=== PATIENT | female | born 1980 | race Caucasian/White ===

== ENCOUNTER → 2018-08-05 | Outpatient (CLI) | payer OTHER, SELFPAY ==
[2018-08-05 16:02] LABS: ALB/GLOB Ratio 1.1 RATIO (0.9-2.4); AST(SGOT) 13 U/L (15-37); Alanine Aminotransfer ALT/SGPT 17 U/L (13-56); Albumin, Serum 4.1 g/dL (3.2-5.0); Alkaline Phosphatase 70 U/L (45-117); Anion Gap 7 (5-15); BUN 10 mg/dL (7-18); BUN/Creat Ratio 14.3 RATIO (10-20); CRP < 2.90 mg/L (0.0-3.0); Calcium,Total 9.8 mg/dL (8.5-10.1); Chloride 103 mmol/L (98-107); EST Glomerular Filtration Rate 98 mL/min (>60); Est Glom Filt Rate - Afr Amer 119 mL/min (>60); Globulin 3.8 g/dL (2.2-4.2); Glucose 83 mg/dL (74-106); Protein, Total 7.9 g/dL (6.4-8.2); Rheumatoid Factor < 10.0 IU/mL (<15); Sodium Level 140 mmol/L (136-145)
[2018-08-05 16:06] LABS: Erythrocyte Sedimentation Rate 15 mm/hr (0-20)
[2018-08-05 16:21] LABS: Absolute Neutrophil Count 3.7 X10^3/uL (2.0-7.7); Basophil# 0.03 X10^3/uL; Basophil% 0.5 % (0-1); Eosinophil# 0.05 X10^3/uL; Eosinophils% 0.9 % (0-5); Hematocrit 35.4 % (37-47); Hemoglobin 10.7 g/dl (12.0-15.0); Lymphocyte % 30.6 % (19-41); Mean Corp Hgb Conc 30.2 g/gl (32-36); Mean Corpuscular Hgb 22.5 pg (27.0-32.0); Mean Corpuscular Volume 74.5 fL (81-99); Mean Platelet Vol. 10.4 fl (6.2-12.0); Monocyte% 5.1 % (0-10); Neutrophil % 62.9 % (47-70); Platelet Count 404 K/mm3 (150-450); RBC Distribution Width CV 13.9 % (11.6-14.6); RBC Distribution Width SD 37.9 fl (35.1-43.9); Red Blood Count 4.75 M/mm3 (4.2-5.4); White Blood Count 5.9 K/mm3 (4.4-11.0)
[2018-08-05 16:22] LABS: Differential Indicated SCAN CRITERIA MET; POSITIVE COUNT NO; POSITIVE DIFFERENTIAL NO; POSITIVE MORPHOLOGY YES
[2018-08-05 16:25] LABS: Anisocytosis 1+; Hypochromasia 1+; Microcytosis 3+; Platelet Estimate ADEQUATE (ADEQ)
[2018-08-06 09:08] LABS: Iron 17 ug/dL (50-170)
[2018-08-07 15:05] LABS: ANTINUCLEAR ANTIBODIES DIRECT Negative (Negative)
== END | disposition home or self-care (01) ==
LOC: MFPLAB 14:21
PROVIDERS: Family Provider Family Medicine; PCP Family Medicine; Referring Provider Family Medicine; Visit Provider Family Medicine
DX: R68.2 Dry mouth, unspecified (principal)
CPT/HCPCS: 36415; 80053; 83540; 85025; 85652; 86038; 86140; 86431

== ENCOUNTER → 2020-11-22 10:35 | Outpatient (CLI) | payer OTHER, SELFPAY ==
--- NOTE | 2020-11-22 10:42 | BI_ITS ---
MAMMOGRAPHY - BILATERAL SCREENING REASON FOR EXAM: Female, 40 years old. Routine annual screening examination. PERTINENT HISTORY: Non-contributory. TECHNIQUE: Digital bilateral breast hannah (3D mammographic acquisition) in the CC and MLO projections. 2-D mediolateral oblique (MLO) and craniocaudad (CC) views of both breasts were obtained. CAD: Full Field Digital Mammography with Computer Added Detection was performed. COMPARISON: No comparison mammograms available at this time. If any prior films become available, an addendum to this report can be generated. FINDINGS: Breast Composition: The breasts are heterogeneously dense, which may obscure small masses. There are no dominant masses or suspicious calcifications. No other significant abnormalities are identified. BI/SCRN MAMM (CAD)W/HANNAH BILAT IMPRESSION: Negative screening mammogram. Yearly followup mammogram recommended. (A) ASSESSMENT CATEGORY: BIRADS Category 1: Negative. A letter regarding these results will be sent to the patient by the facility within 30 days. Approximately 10% of breast cancers are not detected by mammography. A normal mammogram should not delay biopsy of a clinically suspicious abnormality. [id number] Electronically Signed: Arcadio Urbano MD at 15:23 EDT , Service support ,
== END ==
PROVIDERS: PCP Family Medicine; Referring Provider Family Medicine; Visit Provider Family Medicine
DX: Z12.31 Encounter for screening mammogram for malignant neoplasm of breast (principal)
CPT/HCPCS: 77063; 77067

== ENCOUNTER → 2021-08-30 | Outpatient (CLI) | payer SELFPAY ==
[2021-09-01 18:40] LABS: HPV APTIMA, High Risk Negative (Negative)
== END | disposition home or self-care (01) ==
LOC: LABSPEC 09:24
PROVIDERS: PCP Family Medicine; Visit Provider Student in an Organized Health Care Education/Training Program
DX: Z12.4 Encounter for screening for malignant neoplasm of cervix (principal)
CPT/HCPCS: 87624; 88175; G0145

== ENCOUNTER 2022-02-16 09:03 | Day surgery (SDC) | payer SELFPAY ==
--- NOTE | 2022-02-12 17:33 | HP.PCM_ITS ---
[facility] - General General Date of Admission: 02/16/22 Date of Service: 02/16/22 Chief Complaint: Chronic venous insufficiency, varicose veins with inflammation, leg pain, history of superficial thrombophlebitis, postphlebitic syndrome with inflammation, blanchard phlebectatica, hyperpigmentation ? right lower extremity HPI Narrative KAYLIN CHEN is a 42 F who presents with a longstanding history of pain, aching, and discomfort in her right lower extremity. She has had symptoms for many years, which have become progressively worse over time, and with each of her 3 pregnancies. Her symptoms are more pronounced at the end of each day. S he is active, and sleeps on a flat mattress at night. She has a history of superficial thrombophlebitis in the right lower extremity approximately 1 year ago. She denies a significant swelling in her right lower extremity. A venous duplex examination has been performed, which revealed incompetence of the right great saphenous vein, and large varicosities branching off of the right great saphenous vein. The implications of this diagnosis have been discussed with the patient in detail. The options of management have been fully explained. Conservative treatment measures have been implemented, which have included leg elevation, avoidance of idle standing and sitting, graduated compression stockings, weight control measures, active lifestyle, [id number] analgesics, etc. Despite these measures, the patient has remained symptomatic, with symptoms which have adversely affected daily activities, quality of life, and job functions. The patient is a Ab0. [facility] Medical History (Updated 02/12/22 @ 17:[address] Rogelio Shoemaker MD) Chronic venous insufficiency Blanchard phlebectatica paraplantaris Leg pain, right Non-smoker Postphlebitic syndrome with inflammation Varicose veins of right lower extremity with inflammation Wears glasses Home Medications NK 02/09/22 [History Last Taken Unknown] Allergy/AdvReac Type Severity Reaction Status Date / Time No Known Allergies Allergy Verified 02/09/22 15:00 Surgical History History of wisdom tooth extraction Social History Smoking Status: Never smoker Physical Exam Const alert, oriented x3, no apparent distress and well nourished General Appearance: cooperative and well developed Orientation / Consciousness: awake, oriented to person, oriented to place and oriented to time HEENT normocephalic and head/scalp atraumatic Head and Scalp: normal to inspection, normocephalic and atraumatic External Ear: external ears normal Eyes PERRL and EOMs intact bilaterally General Eye: normal appearance of both eyes Neck General: trachea midline Resp normal respiratory effort, normal air movement, no retractions, no use of accessory muscles and clear to auscultation bilaterally Effort and Inspection: able to speak in complete sentences Cardio regular rate and regular rhythm GI soft to palpation and non-tender Extremity normal capillary refill, no clubbing, cyanosis or edema and no calf tenderness Extremity Narrative: No significant swelling is noted in the lower extremities. Blanchard phlebectatica and hyperpigmentation is noted in the vicinity of the right medial malleolus. Multiple large varicosities are noted on the medial aspect of the patient's right lower extremity. General Extremity: Negative for clubbing or cyanosis Neuro oriented x3, CN's II-XII intact bilaterally, no focal motor deficits and no sensory deficits noted Psych thought process normal, cooperative and affect normal Appearance: grossly normal and appropriate Attitude: calm Activity / Motor Behavior: appropriate eye contact Speech: normal speech Mood & Affect: euthymic mood Thought Process: normal thought process Thought Content: normal thought content Attention / Concentration: attention grossly intact Assessment & Plan Assessment/Plan (1) Chronic venous insufficiency: (2) Varicose veins of right lower extremity with inflammation: (3) Leg pain, right: (4) Postphlebitic syndrome with inflammation: (5) Blanchard phlebectatica paraplantaris: PLAN: This is a 42-year-old female with a longstanding history of chronic venous insufficiency, varicose veins with inflammation, leg pain, and postphlebitic syndrome with inflammation involving her right lower extremity. Despite conservative treatment measures, the patient remains symptomatic, with symptoms which adversely affect daily activities, quality of life, and job functions. The options of management have been fully explained. The indications and risks of endovenous laser ablation of the right great saphenous vein have been discussed with the patient in detail. The patient is to be admitted for the purpose of elective endovenous laser ablation of the right great saphenous vein. The indications and risks of the procedure have been discussed with the patient in detail. Expectations of the procedure have been explained. The patient's questions have been answered. The appropriate preprocedure consent process has been undertaken. The patient has indicated her desire to proceed.
[2022-02-16 10:01] VITALS: BP 117/86; PULSE 85; RESP 18; TEMP 36.5; O2SAT 100; BMI 21.3
[2022-02-16] MEDS: Enoxaparin 30 MG/0.3 ML Syringe SC (10:08)
[2022-02-16] MEDS: Lactated Ringers 1,000 ML 150 ML IV (10:08)
--- NOTE | 2022-02-16 10:14 | SUR.PREOP ---
patient refused urine due to having vasectomy. This RN spoke with Dr. Leung and her stated that it was okay to not do urine . Explained to patient. she voiced understanding.
[2022-02-16] MEDS: Cefazolin 2 GM in 0.9% Normal Saline 100 ML IV (11:03)
[2022-02-16 12:15] VITALS: BP 115/62; BP 117/86; PULSE 94; RESP 18; TEMP 37; O2SAT 99
--- NOTE | 2022-02-16 12:27 | DCINST_ITS ---
Discharge Instructions Diet Discharge Diet: No restrictions Activity Discharge Activity: May Not Drive and May Shower (48 hours) May shower in (days): 2 Weight Bearing Status: Weight bearing as tolerated Keep extremity elevated above heart level: Right Leg Dressing / Incision Call your doctor if your incision/area has: Sudden Increased Bleeding Call your doctor if you observe: Shortness of breath, Chest pain and Uncontrolled pain Change Dressing in: 2 days (Re-wrap leg daily after initial shower. Wrap from base of toes to upper thigh.) Remove Dressing in: 2 days Follow Up Care Please Follow Up With: Rogelio Shoemaker MD When: 10-14 days Test Results: Test results from this visit will be discussed in further detail at your follow- up appointment, if applicable. Discharge Plan Admission Attending Provider: Rogelio Shoemaker Primary Care Provider: Philipp Gardiner Discharge Orders/Prescriptions Prescriptions: No Action NK Referrals / Follow Up: Philipp Gardiner MD [Primary Care Provider] - Disposition Disposition (needs filled in before D/C Order can be placed): Home, Self Care
[2022-02-16 12:30] VITALS: BP 111/59; BP 117/86; PULSE 92; RESP 16; O2SAT 100
[2022-02-16 12:42] VITALS: BP 107/67; BP 117/86; PULSE 92; RESP 16; TEMP 37.1; O2SAT 99
[2022-02-16 13:15] VITALS: BP 110/62; BP 117/86; PULSE 88; RESP 18; O2SAT 98
--- NOTE | 2022-02-16 18:04 | PCM.OPRPT ---
Problems Associated Problem List Diagnoses (1) Chronic venous insufficiency: (2) Varicose veins of right lower extremity with inflammation: (3) Leg pain, right: (4) Postphlebitic syndrome with inflammation: (5) Aburto phlebectatica paraplantaris: Report of Operation Date of Procedure: 02/16/22 Pre-Operative Diagnosis: Chronic venous insufficiency, varicose veins with inflammation, leg pain, post-phlebitic syndrome with inflammation, aburto phlebectatica - right lower extremity Post-Operative Diagnosis: Chronic venous insufficiency, varicose veins with inflammation, leg pain, post-phlebitic syndrome with inflammation, aburto phlebectatica - right lower extremity Surgery/Procedure Performed:: Endovenous laser ablation of the right great saphenous vein Description of Surgical Findings:: As above Surgeon: Rogelio Shoemaker Type of Anesthesia: General and Tumescent Anesthesiologist: Chuy Mortensen Special Medications: Lovenox 30 mg subcutaneously Specimen's removed: None Drains: None Estimated Blood Loss (mL): Minimal Description of Procedure: This is a 42-year-old female with a longstanding history of chronic pain, aching, and discomfort in her right lower extremity. In addition, she has developed manifestations of chronic venous disease, including aburto phlebectatica near the right medial malleolus. A recent venous duplex examination revealed valvular incompetence involving the right great saphenous vein. The implications of this diagnosis were discussed with the patient in detail. The options of management were fully explained. Conservative treatment measures were implemented, including leg elevation, avoidance of idle standing and sitting, graduated compression stockings, weight control measures, active lifestyle, [id number]-[id number] analgesics, etc. Despite these measures, the patient remained symptomatic, with symptoms which adversely affected daily activities, quality of life, and job functions. The indications and risks of endovenous laser ablation of the right great saphenous vein were discussed with the patient in detail. The appropriate pre-procedure consent process was undertaken. The patient underwent ultrasound marking of the right great saphenous vein preoperatively. She was then brought to the operating suite, placed supine upon the operating table, where general anesthesia was administered by the anesthesia staff. The patient's right lower extremity and right groin were prepped and draped in the appropriate sterile manner. The patient was placed in reverse Trendelenburg position. Ultrasonography was used to image the right great saphenous vein in the distal calf. The micropuncture technique was used to access the right great saphenous vein percutaneously in the distal calf. In this manner, a 0.018 inch guidewire was advanced intraluminally into the right great saphenous vein, and was visualized by ultrasonography. A micropuncture sheath was advanced over the guidewire. The 0.018 inch guidewire was exchanged for a 0.035 inch guidewire, which was then advanced intraluminally to a level just distal to the right sapheno-femoral junction, as confirmed by ultrasound imaging. A long 4 Malagasy sheath was advanced over the guidewire, and its tip was positioned approximately 2-1/2 to 3 cm distal to the right sapheno-femoral junction. Perivenous tumescent anesthesia was injected from the 4 Malagasy sheath exit site up to the right sapheno-femoral junction. This was performed segmentally using ultrasound imaging. The AngioDynamics laser fiber was then introduced into the 4 Malagasy sheath and coupled appropriately. Ultrasonography was used to confirm that the tip of the laser fiber was positioned within the right great saphenous vein approximately 2-1/2 to 3 cm distal to the right sapheno-femoral junction. The patient was then placed in Trendelenburg position and the laser fiber was activated. The AngioDynamics laser was slowly withdrawn at a constant rate throughout the length of the right great saphenous vein, thereby ablating the great saphenous vein segmentally. The energy applied was approximately 60 to 80 J/cm. Following the laser ablation, the laser fiber and sheath were removed, and manual pressure was briefly applied to the percutaneous access site to achieve hemostasis. After assuring satisfactory hemostasis, the access site was approximated using Cavilon and Steri-Strips. A dry sterile gauze dressing was applied over the access site, and the leg was wrapped from the base of the toes to upper thigh with Kerlix, followed by Akhil wrap. The blood loss for the procedure was minimal. The sponge, needle, and instrument counts at the end of the procedure were correct. The patient tolerated the procedure well and was transported from the operating room to the post-anesthesia care unit in stable condition. The amount of tumescent anesthesia utilized, number of joules applied, and treatment times were recorded separately. Grafts/Implants Used: None Complications None Admit VTE Documentation VTE Present on Admission: No VTE Mechan Device Prophylaxis: SCD's (Left) VTE Pharm Prophylaxis ordered?: Yes
== END 2022-02-16 14:03 | disposition home or self-care (01) ==
LOC: SDC 09:07 → AC 09:07
PROVIDERS: PCP Family Medicine; Referring Provider Surgery; Visit Provider Surgery
PROC: (CPT 36478; principal; 2022-02-16 10:15)
DX: I87.2 Venous insufficiency (chronic) (peripheral) (principal); I83.91 Asymptomatic varicose veins of right lower extremity; M79.604 Pain in right leg; I87.021 Postthrombotic syndrome with inflammation of right lower extremity
CPT/HCPCS: 36478; 01520; J7040; J7120; J2405

== ENCOUNTER → 2022-09-18 | Outpatient (CLI) | payer SELFPAY ==
--- NOTE | 2022-09-18 13:57 | BI_ITS ---
MAMMOGRAPHY - BILATERAL SCREENING REASON FOR EXAM: Female, 42 years old. Routine annual screening examination. PERTINENT HISTORY: Non-contributory. TECHNIQUE: Digital bilateral breast hannah (3D mammographic acquisition) in the CC and MLO projections. 2-D mediolateral oblique (MLO) and craniocaudad (CC) views of both breasts were obtained. CAD: Full Field Digital Mammography with Computer Added Detection was performed. COMPARISON: Comparison is made with prior study done November 22, 2020. FINDINGS: Breast Composition: The breasts are heterogeneously dense, which may obscure small masses. There are no dominant masses or suspicious calcifications. No other significant abnormalities are identified. There has been no significant change since the prior study. BI/SCRN MAMM (CAD)W/HANNAH BILAT IMPRESSION: Stable bilateral screening mammogram. Yearly follow-up mammogram recommended. (A) ASSESSMENT CATEGORY: BIRADS Category 1: Negative. A letter regarding these results will be sent to the patient by the facility within 30 days. Approximately 10% of breast cancers are not detected by mammography. A normal mammogram should not delay biopsy of a clinically suspicious abnormality. [id number] Electronically Signed: Arcadio Urbano MD at 15:21 EDT ,
== END | disposition home or self-care (01) ==
PROVIDERS: PCP Family Medicine; Referring Provider Nurse Practitioner Women's Health; Visit Provider Nurse Practitioner Women's Health
DX: Z12.31 Encounter for screening mammogram for malignant neoplasm of breast (principal)
CPT/HCPCS: 77063; 77067

== ENCOUNTER → 2023-10-01 | Outpatient (CLI) | payer OTHER, SELFPAY ==
--- NOTE | 2023-10-01 10:29 | BI_ITS ---
MAMMOGRAPHY - BILATERAL SCREENING REASON FOR EXAM: Female, 43 years old. Routine annual screening examination. PERTINENT HISTORY: Non-contributory. TECHNIQUE: Digital bilateral breast hannah (3D mammographic acquisition) in the CC and MLO projections. 2-D mediolateral oblique (MLO) and craniocaudad (CC) views of both breasts were obtained. CAD: Full Field Digital Mammography with Computer Added Detection was performed. COMPARISON: Comparison is made with prior study dated September 18, 2022 and November 22, 2020. FINDINGS: Breast Composition: The breasts are heterogeneously dense, which may obscure small masses. There are no dominant masses or suspicious calcifications. No other significant abnormalities are identified. There has been no significant change since the prior study. BI/SCRN MAMM (CAD)W/HANNAH BILAT IMPRESSION: Stable bilateral screening mammogram. Yearly follow-up mammogram recommended. (A) ASSESSMENT CATEGORY: BIRADS Category 1: Negative. A letter regarding these results will be sent to the patient by the facility within 30 days. Approximately 10% of breast cancers are not detected by mammography. A normal mammogram should not delay biopsy of a clinically suspicious abnormality. [id number] Electronically Signed: Arcadio Urbano MD at 11:21 EDT ,
== END | disposition home or self-care (01) ==
LOC: OPBI 10:29
PROVIDERS: PCP Family Medicine; Referring Provider Nurse Practitioner Women's Health; Visit Provider Nurse Practitioner Women's Health
DX: Z12.31 Encounter for screening mammogram for malignant neoplasm of breast (principal)
CPT/HCPCS: 77063; 77067

== ENCOUNTER → 2024-10-08 | Outpatient (CLI) | payer OTHER, SELFPAY ==
--- NOTE | 2024-10-08 10:00 | BI_ITS ---
EXAM: SCRN MAMM (CAD)W/HANNAH BILAT DATE: 10/08/2024 CLINICAL HISTORY: F, Age 44 y/o , SCREEN FOR BREAST CANCER No family history. TECHNIQUE: SCRN MAMM (CAD)W/HANNAH BILAT COMPARISON: Prior exam(s) dated October 01, 2023.. FINDINGS: TISSUE DENSITY: The breasts are heterogeneously dense, which may obscure small masses. Bilateral Breast Mammographic Findings: No significant masses, calcifications or other abnormalities are identified. No suspicious masses, areas of developing architectural distortion, or suspicious calcifications. There has been no significant interval change. BI/SCRN MAMM (CAD)W/HANNAH BILAT IMPRESSION: Stable examination. OVERALL FINAL ASSESSMENT BI-RADS 1: NEGATIVE. RECOMMENDATION: Routine annual follow-up in 1 Year A letter with findings and recommendations will be mailed to the patient. Reading Location: [id number]
--- OUTSIDE RECORDS SUMMARY | 2024-10-08 11:43 | XMS RPT_ITS | CCD ---
Author Organization [facility] Informat ion Partnership [facility] Care Team Providers Care E Learning Manager Name Role Phone Dr. Philipp Gardiner Primary Care Provider Dr. Philipp Gardiner Referring Provider Domenica GARAGE DOOR TECHNICIAN, FREDOC Danni Attending Provider Domenica GARAGE DOOR TECHNICIAN, Danni Attending Unavailable Matt Gardiner Primary Care Unavailable Matt Gardiner Referring Unavailable Domenica GARAGE DOOR TECHNICIAN, Danni Attending Unavailable Domenica GARAGE DOOR TECHNICIANDanni Referring Unavailable Matt Gardiner Primary Care Unavailable Dr. Matt Gardiner MD Primary Care Provider Dr. Matt Gardiner MD Referring Provider 1( [phone] Domenica HESTER-C, Danni Attending Provider Problems Problem Classification Problem Date Documented Date Episodic/Chronic Other circulatory disease (3 sources) Ankle flare; Translations: [Other specified symptoms and signs involving the circulatory and respiratory systems] 02-12-2022 Episodic Other circulatory disease (1 source) Other specified symptoms and signs involving the circulatory and respiratory systems; Translations: [Other symptoms involving cardiovascular system] Episodic Other connective tissue disease (3 sources) Pain in right lower limb; Translations: [Pain in right leg] 02-12-2022 Episodic Other connective tissue disease (1 source) Pain in right leg; Translations: [Pain in limb] Episodic Other diseases of veins and lymphatics (3 sources) Postthrombotic syndrome; Translations: [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] 02-12-2022 Chronic Other diseases of veins and lymphatics (1 source) 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; Translations: [Postphlebetic syndrome with inflammation] Chronic Other diseases of veins and lymphatics (3 sources) Peripheral venous insufficiency; Translations: [Venous insufficiency (chronic) (peripheral)] 02-12-2022 Episodic Other diseases of veins and lymphatics (1 source) Venous insufficiency (chronic) (peripheral); Translations: [Venous (peripheral) insufficiency, unspecified] Episodic Other female genital disorders (1 source) Cyst of vulva; Translations: [Vulvar cyst] 10-01-2023 Episodic Comment on above: reassured, warm soak s Other screening for suspected conditions (not mental disorders or infectious disease) (1 source) Encounter for screening mammogram for malignant neoplasm of breast; Translations: [Encounter for screening mammogram for malignant neoplasm of breast] Onset: 10-06-2024 Episodic Varicose veins of lower extremity (4 sources) Varicose vein of leg with phlebitis; Translations: [Varicose veins of right lower extremity with inflammation] Episodic Results Test Name Value Interpretation Reference Range Facil ity Cervical or vagninal specime n microscopic examination by cytology stain (reported ason 08-30-2021 Cytology report Cyto stain Doc (Cvx/Vag) Comment . [facility] Work Phone: Comment on above: The Pap smear is a s creening test designed to aid in thedetection of premalignant and malignant conditions of theuterine cervix. It is not a diagnostic procedure andshould not be used as the sole means of detecting cervicalcancer. Both false-positive and false-negative reports dooccur. Detection in cervical specim en of any of human papilloma virus (HPV) 16, 18, 31, 33,on 08-30-2021 HPV 16+18+31+33+35+39+4 5+51+52+56+58+59+66 +68 DNA Probe+sig amp Ql (Cvx) Negative Negative [facility] Work Phone: Comment on above: This nucleic acid am plification test detects fourteen high- risk HPV types (16,18,31,33,35,39,45,51,52,56,58,59,66,68)without differentiation.Performed at: [address] [place] [id number] Director: Ruthie Poole MD, Phone: [phone] at: = - [facility] [address] [place] [id number] Director: Ruthie Poole MD, Phone: [phone] Laboratory - Cytologyon 08-19 Forestry Crew Chief Cyto stain Nom (Cvx/Vag) [ID] Comment . [facility] Work Phone: Comment on above: Isadora Zhang, Hog Slaughterer (ASCP) Laboratory - Miscellaneous t estson 08-30-2021 Service comment (Unsp spec) [Interp] Comment . [facility] Work Phone: Comment on above: This liquid based Th inPrep(R) pap test was screened withthe use of an image guided system. Service comment (Unsp spec) [Interp] . . [facility] Work Phone: No Panel Informationon 08-30 Pathology report final diagnosis Narrative Comment . [facility] Work Phone: Comment on above: NEGATIVE FOR INTRAEP ITHELIAL LESION OR MALIGNANCY. Vital Signs Date Time Vital Sign Value Performing Clinician Faci lity 10-08-2024 09:17-0400 Body height 157.[address] Matt Gardiner MD Work Phone: [facility] 10-08-2024 09:13-0400 Body mass index (BMI) [Ratio] 22.5 kg/m2 Dr. Matt Gardiner MD Work Phone: [facility] 10-08-2024 09:13-0400 Body weight 55.[address] Matt Gardiner MD Work Phone: [facility] 10-08-2024 09:13-0400 Diastolic blood pressure 82 mm[Hg] Dr. Matt Gardiner MD Work Phone: [facility] 10-08-2024 09:13-0400 Systolic blood pressure 112 mm[Hg] Dr. Matt Gardiner MD Work Phone: [facility] 09-14-2022 14:22-0400 Body height 157.[address] Philipp Gardiner Work Phone: [facility] 09-14-2022 14:22-0400 Body mass index (BMI) [Ratio] 23.2 kg/m2 Dr. Philipp Gadriner Work Phone: [facility] 09-14-2022 14:22-0400 Body weight 57.[address] Philipp Gardiner Work Phone: [facility] 09-14-2022 14:22-0400 Diastolic blood pressure 74 mm[Hg] Dr. Philipp Gardiner Work Phone: [facility] 09-14-2022 14:22-0400 Systolic blood pressure 121 mm[Hg] Dr. Philipp Gardiner Work Phone: [facility] 02-16-2022 13:15-0500 Diastolic blood pressure 62 mm[Hg] [facility] Work Phone: 02-16-2022 13:15-0500 Heart rate 88 /min [facility] Work Phone: 02-16-2022 13:15-0500 Respiratory rate 18 /min [facility] Work Phone: 02-16-2022 13:15-0500 SaO2% (BldA) [Mass fraction] 98 % [facility] Work Phone: 02-16-2022 13:15-0500 Systolic blood pressure 110 mm[Hg] [facility] Work Phone: 02-16-2022 12:42-0500 Body temperature 98.7 [degF] [facility] Work Phone: 02-16-2022 10:01-0500 Body height 157.48 cm [facility] Work Phone: 02-16-2022 10:01-0500 Body mass index (BMI) [Ratio] 21.3 kg/m2 [facility] Work Phone: 02-16-2022 10:01-0500 Body weight 53 kg [facility] Work Phone: Encounters Encounter Date Encounter Type Care Provider Facility Start: 10-08-2024 End: 10-08-2024 ambulatory Danni Metzger GARAGE DOOR TECHNICIAN Facility:[facility] Start: 10-08-2024 End: 10-08-2024 Patient encounter procedure Danni Metzger GARAGE DOOR TECHNICIAN-C -[facility] Work Phone: Start: 10-08-2024 End: 10-08-2024 Patient encounter status Danni Metzger GARAGE DOOR TECHNICIAN-C [facility] Start: 09-18-2022 End: 09-18-[address] Philipp Gardiner Work Phone: [facility] Work Phone: Start: 09-18-2022 End: 09-18-[address] Philipp Gardiner Work Phone: [facility]-Outpatient Breast Imaging Work Phone: Start: 09-14-2022 End: 09-14-[address] Philipp Gardiner Work Phone: [facility] Work Phone: Start: 02-16-2022 End: 02-16-2022 Admission to same day surgery center [facility] Start: 02-16-2022 End: 02-16-2022 ambulatory [facility] Work Phone: Start: 08-30-2021 End: 08-30-2021 Patient encounter procedure [facility]-Laboratory, Specimen Procedures Date Procedure Procedure Detail Performing Clinician Start: 09-18-2022 Screening mammography Diamond Gardiner Work Phone: Start: 02-16-2022 Destructive procedur e of vein Plan of Treatment Date Care Activity Detail Author Start: 02-16-2022 Bedrest [facility] Work Phone: Start: 02-16-2022 Deep breathing and c oughing exercises [facility] Work Phone: Start: 02-16-2022 Measuring intake and output [facility] Work Phone: Start: 02-16-2022 Medication education [facility] Work Phone: Start: 02-16-2022 Patient discharge [facility] Work Phone: Start: 02-16-2022 Patient education [facility] Work Phone: Start: 02-16-2022 Procedure discontinued [facility] Work Phone: Start: 02-16-2022 Provision of activity privileges [facility] Work Phone: Start: 02-16-2022 Scheduling [facility] Work Phone: Start: 02-16-2022 Taking patient vital signs [facility] Work Phone: Start: 02-16-2022 Vital signs measurements [facility] Work Phone: Start: 02-16-2022 [facility] Work Phone: Start: 02-16-2022 Urine test [facility] Work Phone: Patient referral [facility] Work Phone: Urine test [facility] Work Phone: [facility] Work Phone: Payers Date Payer Category Payer Self-pay [id number] 2024 Private Health Insurance [id number] 2003 Unknown [id number] Unknown [id number] Unknown [id number] Social History Date Type Detail Facility [facility] Work Phone: Start: 1980 Sex Assigned At Female [facility] Start: 02-09-2022 End: 09-14-2022 Tobacco smoking status [facility] Unknown if ever smoked [facility] Start: 09-14-2022 [facility] Never smoked tobacco (finding) [facility] Goals Date Patient Goal Desired Activity /State Mental Status Date Assessment Result Facility 02-16-2022 Cognitive function Voice/Name [facility] Work Phone: Progress note 10-08-2024 Note Date & Type Note Facility 10-08-2024 Progress note [facility] Clinical Note 08-30-2021 Note Date & Type Note Facility 08-30-2021 Note [facility] Work Phone: Pap Smear Specimen Adequacy August 30, 2021 9:15am Comment . Satisfactory for evaluation. Endocervical and/or squamous metaplasticcells (endocervical component) are present. Comment on above: Satisfactory for fili luation. Endocervical and/or squamous metaplasticcells (endocervical component) are present. Evaluation note Note Date & Type Note Facility Evaluation note No assessment information availa ble [facility] Work Phone: Evaluation note Note Date & Type Note Facility Evaluation note Diagnosis Onset Date Aburto phlebectatica paraplantaris acute Leg pain, right acute Postphlebitic syndrome with inflammation acute Varicose veins of right lowe r extremity with inflammation acute Chronic venous insufficiency chronic [facility] Work Phone: Evaluation note Note Date & Type Note Facility Evaluation note Diagnosis Onset Date Routine gynecological examination noneactive [facility] Work Phone: Evaluation note Note Date & Type Note Facility Evaluation note Diagnosis Onset Date Resolution Routine gynecological examination acute October 08 9:09am [facility] Work Phone: Progress note Note Date & Type Note Facility Progress note Note Date/Time October 08, 2024 9:31am [facility] [address], [address] [place] [address] OFFICE VISIT Date of Service: 10/08/24 MR#: [id number] Acct: [id number] Name: KAYLIN CHEN Rep # : [id number] : 1980 Provider: BENITO Metzger Age/Sex: 44/F Location: [facility] [place] Status: Signed Intake Vital Signs 10/01/23 11:00 10/08/24 09:13 10/08/24 09:17 Height 5 ft 2 in 5 ft 2 in 5 ft 2 in Weight: 123 lb 1 oz BMI 22.5 BP 112/82 H Intake Visit Reasons: Annual (LABOR RELATIONS WORKER) Chief Complaint: Annual Platform Man Required: No Is patient in pain?: No Allergies No Known Allergies Allergy (Verified 10/08/24 09:24) Medications ?Medication ?Instructions ?Recorded ?Confirmed ?Type NK 02/09/22 10/08/24 History Is last menstrual period known: Yes Last Menstrual Period: 10/01/24 Post menopausal: No Patient : No : No PFSH Medical History 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 Leg pain, right Varicose veins of right lower extremity with inflammation Chronic venous insufficiency Wears glasses Non-smoker Surgical History History of wisdom tooth extraction Family History Father Cancer Tonsil cancer Hypertension Social History number of children: 3 current occupational status: employed current occupation: violin teacher Smoking Status: Never smoker alcohol intake: never substance use type: does not use seatbelt use: always do you feel safe at home: Yes additional social history: - Jared- interventional pain physician History 3 Elective abortions Hx Para 3 Spontaneous abortions Hx # Term Pregnancies Ectopic pregnancies Hx # Pregnancies Multiple births # of living children 3 Past Pregnancies Del. Date Name GA/Weeks Outcome Route Bth Weight Gen Labor Lgth Anesthesia Del Locatn Provider FOB Unknown Raymond Unknown Jamal Unknown Fercho HPI Annual (LABOR RELATIONS WORKER) Details: KAYLIN CHEN is a 44 year old who presents for annual exam. Denies concerns Last PAP: 2021 History of abnormal PAP:no Last mammogram: 09/2023 History of abnormal mammogram: no Colon cancer screening: Hank 2024 Other preventative health care screenings: Abdifatah Female Reproductive History Last Menstrual Period: 10/01/24 Cycle Length: 21-35 Questions: metrorrhagia: No, sexually active: Yes, dyspareunia: No and PCB: No ROS Const Constitutional: Denies fatigue, weight gain or weight loss Cardio Card: Denies chest pain Resp Resp: Denies cough or dyspnea on exertion GI GI: Denies abdominal pain, bloating, change in stool character, constipation or vomiting : Reports as per HPI; Denies difficulty voiding, pelvic pain, urinary frequency, urinary incontinence,urinary urgency, vaginal discharge or vaginal pruritus Exam Const General: cooperative, healthy appearing, no acute distress and well developed Orientation: alert, oriented to person and oriented to place HENPR Head: normal to inspection Neck Neck: normal visual inspection Thyroid: thyroid normal Lymphatic: no lymphadenopathy noted Chest Breast inspection: normal inspection of the breasts and normal inspection of theaxillae Breast palpation: normal palpation of the breasts, normal palpation of the axillae and no axillary lymphadenopathy Resp Effort & Inspection: normal respiratory effort GI Palpation: soft, no masses and nontender Rectal Exam: deferred External Female Exam: normal external appearance and normal appearance of the urethra Urethra: normal appearance of the urethra and normal palpation Speculum Exam - Vagina: normal appearance of the vagina and normal vaginal discharge Speculum Exam - Cervix: normal appearance of the cervix Bimanual Exam- Vagina & Uterus: normal bimanual exam, uterine size normal, uterine shape normal and non-tender Bimanual Exam- Adnexa, other: normal adnexae, no masses, normal and non-tender Pelvic Support: normal Neuro General: patient alert and patient oriented x3 Psych Affect: normal affect Coding Level of Care Code Off vis,est,prev 40-64yrs Diagnoses Encounter for gynecological examination without abnormal finding Z01.419 Gynecological examination findings: abnormal findings ABSENT Assessment and Plan Assessment and Plan (1) Routine gynecological examination: Status: Acute Qualifiers: Gynecological examination findings: abnormal findings ABSENT Qualified Code(s): Z01.419 - Encounter for gynecological examination (general) (routine) without abnormal findings Plan Completed breast and pelvic exam Reviewed diet and exercise Pap 2021 Mammogram today pending breast self exam encouraged monthly Contraception sp vasectomy Colonoscopy 2024 RTO 1 year, prn with problems Danni Metzger TAIL BOARD WORKER 10/08/24 0931 <Electronically signed by Danni Chapman s GARAGE DOOR TECHNICIAN GARAGE DOOR TECHNICIAN-C> Date _ Danni Metzger GARAGE DOOR TECHNICIAN GARAGE DOOR TECHNICIAN-C Cosigner Signature: Date (if applicable) CC: ~ [facility] Work Phone: Reason for referral (narrative) Note Date & Type Note Facility Reason for referral (narrative) No reason for referral information available [facility] Work Phone: Chief Complaint and Reason for Visit Chief Complaint RIGHT LEG EVLA 1 VEI N Reason for Visit Aburto phlebectatica paraplantaris Leg pain, right Postphlebitic syndrome with inflammation Varicose veins of right lower extremity with inflammation Chronic venous insufficiency Chief Complaint Annual (LABOR RELATIONS WORKER) , waitl ist pt SCREENING Reason for Visit Routine gynecologica l examination Chief Complaint Admit Date Annual (LABOR RELATIONS WORKER) October 08, 2024 9: 09am Reason for Visit Admit Date Routine gynecological examination October 08, 2024 9:09am Advance Directives Advance Directive Response Recorded Date/ Time Living Will No February 09, 2 022 3:04pm Power of Treatment Supervisor No February 09, 2022 3:04pm Advance Directive Response Recorded Date/ Time Living Will No February 09, 2 022 4:04pm Power of Treatment Supervisor No February 09, 2022 4:04pm Summary Purpose Family History No Family History Records Found Additional Source Comments Goals (unrecognized section and content) Goals may be documented in a n alternate sectionGoals may be documented in an alternate sectionGoals may be documented in an alternate section Care Teams (unrecognized sec tion and content) Team Status: Active Member Role Status Dates Dr. Philipp Gardiner MD Family Provider Active Dr. Philipp Gardiner MD Primary Care Provider Activ e Team Status: Inactive Member Role Status Dates Dr. Philipp Gardiner MD Primary Care Provider, Refe rring Provider Active Danni Meztger GARAGE DOOR TECHNICIAN, GARAGE DOOR TECHNICIAN-C Attending Provider Active Team Status: Inactive Member Role Status Dates Dr. Philipp Gardiner MD Primary Care Provider Activ e Danni Metzger GARAGE DOOR TECHNICIAN, GARAGE DOOR TECHNICIAN-C Attending Provider, Referring Provider Active Team Status: Active Member Role/Relationship Status Dates Dr. Matt Gardiner MD Primary Care Provider Acti ve Team Status: Inactive Member Role/Relationship Status Dates Dr. Matt Gardiner MD Primary Care Provider Acti ve Start: October 08, 2024 End: October 08, 2024 Dr. Matt Gardiner MD Referring Provider Active Start: October 08, 2024 End: October 08, 2024 Danni Metzger GARAGE DOOR TECHNICIAN, GARAGE DOOR TECHNICIAN-C Attending Provider Active Start: October 08, 2024 End: October 08, 2024 INFORMATION SOURCE (unrecogn ized section and content) DATE CREATED AUTHOR 10/07/2024 [facility] FOR RECORDS PERTAINING TO PATIENTS WHO ARE OR HAVE BEEN ENROLLED IN A CHEMICAL DEPENDENCY/SUBSTANCEABUSE PROGRAM, SOME INFORMATION MAY BE OMITTED. This clinical summary was aggregated from multiple sources. Caution should be exercised in using it in the provision of clinical care. This summary normalizes information from multiple sources, and as a consequence, information in this document may materially change the coding, format and clinical context of patient data. In addition, data may be omitted in some cases. CLINICAL DECISIONS SHOULD BE BASED ON THE PRIMARY CLINICAL RECORDS. [employer] provides no warranty or guarantee of the accuracy or completeness of information in this document.
== END | disposition home or self-care (01) ==
LOC: OPBI 09:36
PROVIDERS: PCP Family Medicine; Referring Provider Nurse Practitioner Women's Health; Visit Provider Nurse Practitioner Women's Health
DX: Z12.31 Encounter for screening mammogram for malignant neoplasm of breast (principal)
CPT/HCPCS: 77063; 77067